=== PATIENT | female | born 1985 | race Caucasian/White ===

== ENCOUNTER 2023-04-25 00:16 | Emergency (ER) | payer OTHER, SELFPAY ==
[2023-04-25 00:26] VITALS: BP 134/55; PULSE 86; RESP 16; TEMP 36.9; O2SAT 100
--- NOTE | 2023-04-25 02:49 | ED.GENADULT ---
HPI - General Adult General Chief complaint: Recheck/Abnormal Lab/Rx Stated complaint: cellulitus recheck Time Seen by Provider: 04/25/23 02:26 History of Present Illness HPI narrative: Patient 37-year-old female who presents emergency department with chief complaint of redness and swelling in the groin the patient reports he was seen in urgent care earlier today started on Keflex patient reports that the area started draining pus and reports has become extremely painful. Related Data Home Medications Medication Instructions Recorded Confirmed citalopram 10 mg tablet 10 mg PO DAILY 06/30/22 07/18/22 omeprazole 20 mg capsule,delayed 20 mg PO DAILY 06/30/22 07/18/22 release trazodone 50 mg tablet 50 mg PO QHS PRN Insomnia 06/30/22 07/18/22 Allergies Allergy/AdvReac Type Severity Reaction Status Date / Time No Known Allergies Allergy Verified 07/18/22 07:04 Review of Systems Review of Systems: A 10 system review of systems was completed on the patient and is negative except for what is stated in the HPI. Nursing and ancillary documentation was reviewed. [facility] Past Medical History Medical History Epigastric pain Finger dislocation Nausea and vomiting PVC (premature ventricular contraction) Tonsil and adenoid disease, chronic Vertigo Surgical History Surgical History Hx of biopsy Social History Social History Smoking status: Never smoker Alcohol intake: never Substance use: never Substance use type: does not use Living arrangements: with family Spiritual care concerns: No Exam Narrative: GENERAL: Well-appearing, well-nourished, and in no acute distress. HEAD: Normocephalic, atraumatic. EYES: PERRLA and EOMI. ENT: Nares clear, no rhinorrhea or epistaxis. Mucous membranes moist. NECK: Supple. CHEST: Clear to auscultation. No respiratory distress. HEART: Regular rate and rhythm. No murmur heard. Normal peripheral pulses. ABDOMEN: Soft, nontender, nondistended, normal active bowel sounds. : There is redness and swelling in the left inguinal area there is draining from a area of raised tissue consistent with a draining abscess EXTREMITIES: Normal range of motion. No edema. SKIN: Warm, dry, no rash. NEURO: No focal deficits. Alert and oriented x3. PSYCH: Normal mood and affect. Course Vital Signs Vital signs: Vital Signs Temperature 36.9 C 04/25/23 00:26 Pulse Rate 86 04/25/23 00:26 Respiratory Rate 16 04/25/23 00:26 Blood Pressure 134/55 L 04/25/23 00: Pulse Oximetry 100 04/25/23 00:26 Oxygen Delivery Room Air 04/25/23 00:26 Temperature 36.9 C 04/25/23 00: Pulse Rate 86 04/25/23 00:26 Respiratory Rate 16 04/25/23 00: Blood Pressure 134/55 L 04/25/23 00: Pulse Oximetry 100 04/25/23 00: Oxygen Delivery Room Air 04/25/23 00: Medical Decision Making MDM Narrative Medical decision making narrative: Differential diagnosis includes Bartholin's cyst, draining abscess, cellulitis The area is adequately draining without additional sharp debridement. The patient's antibiotics will be changed to add MRSA coverage. Doxycycline will be added to the Keflex. Patient will be given a prescription for [place] as well Vital Signs Vital Signs: Vital Signs Temperature 36.9 C 04/25/23 00:26 Pulse Rate 86 04/25/23 00:26 Respiratory Rate 16 04/25/23 00:26 Blood Pressure 134/55 L 04/25/23 00:26 Pulse Oximetry 100 04/25/23 00:26 Oxygen Delivery Room Air 04/25/23 00:26 Temperature 36.9 C 04/25/23 00:26 Pulse Rate 86 04/25/23 00:26 Respiratory Rate 16 04/25/23 00:26 Blood Pressure 134/55 L 04/25/23 00:26 Pulse Oximetry 100 04/25/23 00:26 Oxygen Delivery Room Air 04/25/23 00: Discharge Plan
[2023-04-25] MEDS: DOXYCYCLINE HYCLATE 100 MG TABLET PO (03:04)
[2023-04-25] MEDS: HYDROcodone/acetaminophen (*CRX) 5-325 MG TABLET 1 TAB PO (03:04)
[2023-04-25 03:07] VITALS: BP 132/70; PULSE 74; RESP 19; O2SAT 100
== END 2023-04-25 03:08 | disposition home or self-care (01) ==
PROVIDERS: Emergency Provider Emergency Medicine; PCP Nurse Practitioner Family
DX: L02.214 Cutaneous abscess of groin (principal)
CPT/HCPCS: 99283; A9270